=== PATIENT | female | born 1985 | race Caucasian/White ===

== ENCOUNTER 2022-07-21 18:47 | Emergency (ER) | payer BC ==
[2022-07-21] MEDS ORDERED: Lidocaine 1% 5 ML VIAL INJECT ONE (19:22)
[2022-07-21] MEDS ORDERED: Bacitracin Oint 1 GM U/D Packet TOP ONE (19:22)
== END 2022-07-21 19:57 | disposition home or self-care (01) ==
LOC: JP.ED 18:47
DX: S61.412A Laceration without foreign body of left hand, initial encounter (principal); E03.9 Hypothyroidism, unspecified; Z72.0 Tobacco use; Z79.899 Other long term (current) drug therapy; Z86.73 Personal history of transient ischemic attack (TIA), and cerebral infarction without residual deficits; W26.0XXA Contact with knife, initial encounter
CPT/HCPCS: 12001; 99282

== ENCOUNTER 2023-02-03 14:17 | Emergency (ER) | payer BC, MEDICAID | END 2023-02-03 16:09 | disposition home or self-care (01) | LOC: JP.ED 14:17 | DX: A04.72 Enterocolitis due to Clostridium difficile, not specified as recurrent (principal) | CPT/HCPCS: 99283 ==

== ENCOUNTER 2023-11-10 21:20 | Emergency (ER) | payer BC, MEDICAID | END 2023-11-10 22:51 | disposition home or self-care (01) | LOC: JP.ED 21:20 | DX: S90.32XA Contusion of left foot, initial encounter (principal); E03.9 Hypothyroidism, unspecified; Z79.890 Hormone replacement therapy; W20.8XXA Other cause of strike by thrown, projected or falling object, initial encounter | CPT/HCPCS: 73630-LT; 99283 ==